=== PATIENT | male | born 1935 | race Caucasian/White ===

== ENCOUNTER → 2019-06-16 | Outpatient (CLI) | payer OTHER | LOC: CAT 07:37 | DX: R91.8 Other nonspecific abnormal finding of lung field (principal); J98.4 Other disorders of lung ==

== ENCOUNTER → 2019-07-07 | Outpatient (CLI) | payer OTHER | LOC: SJCVCIMAG 08:18 | DX: I08.8 Other rheumatic multiple valve diseases (principal); I49.3 Ventricular premature depolarization; I71.2 Thoracic aortic aneurysm, without rupture; I10 Essential (primary) hypertension; R91.8 Other nonspecific abnormal finding of lung field; E78.5 Hyperlipidemia, unspecified; I25.10 Atherosclerotic heart disease of native coronary artery without angina pectoris; K21.9 Gastro-esophageal reflux disease without esophagitis; E03.9 Hypothyroidism, unspecified; Z79.899 Other long term (current) drug therapy; Z87.891 Personal history of nicotine dependence ==

== ENCOUNTER → 2019-07-15 | Outpatient (CLI) | payer OTHER | LOC: SJCVCIMAG 15:24 | DX: I08.1 Rheumatic disorders of both mitral and tricuspid valves (principal); I11.9 Hypertensive heart disease without heart failure; I49.3 Ventricular premature depolarization; I49.1 Atrial premature depolarization; I71.2 Thoracic aortic aneurysm, without rupture; I25.10 Atherosclerotic heart disease of native coronary artery without angina pectoris; E78.5 Hyperlipidemia, unspecified; I49.9 Cardiac arrhythmia, unspecified; Z87.891 Personal history of nicotine dependence ==

== ENCOUNTER → 2020-06-03 | Outpatient (CLI) | payer OTHER | LOC: CAT 09:01 | PROVIDERS: ATTEND Internal Medicine Pulmonary Disease | DX: J84.10 Pulmonary fibrosis, unspecified (principal); I71.2 Thoracic aortic aneurysm, without rupture; R91.8 Other nonspecific abnormal finding of lung field ==